=== PATIENT | male | born 1985 | race Caucasian/White ===

== ENCOUNTER 2022-08-28 17:11 | Emergency (ER) | payer OTHER ==
[~2022-08-28] VITALS: Ht 182.9 cm; Wt 90.0 kg
[2022-08-28 18:34] LABS: Urine Bacteria NONE SEEN /hpf (None Seen); Urine Blood Negative /uL (Negative); Urine Mucus FEW (None Seen); Urine Specific Gravity 1.021 (1.001-1.035); Urine WBC <1 /hpf (0 - 3)
[2022-08-28 18:36] LABS: Basophils # (auto) 0 10 ^3/uL (0-0.2); Basophils % (auto) 0.4 % (0.0-2.0); Eosinophils # (auto) 0.1 10 ^3/uL (0-0.8); Eosinophils % (auto) 1.1 % (0.0-7.0); Hematocrit 49.7 % (41.0-53.0); Hemoglobin 16.3 g/dL (13.5-17.5); Lymphocytes # (auto) 1.8 10 ^3/uL (0.4-5.4); Lymphocytes % (auto) 24.9 % (10.0-50.0); Mean Corpuscular Hemoglobin 30.3 pg (28.0-32.0); Mean Corpuscular Hgb Conc. 32.8 g/dL (32.0-36.0); Mean Corpuscular Volume 92.4 fL (80.0-100.0); Monocytes # (auto) 0.7 10 ^3/uL (0-1.3); Monocytes % (auto) 10.2 % (0.0-12.0); Neutrophils # (auto) 4.6 10 ^3/uL (1.6-8.6); Neutrophils % (auto) 63.4 % (37.0-80.0); Nucleated Red Blood Cells % 0.1 %; Red Blood Cells 5.38 10^6/uL (4.5-5.90); Red Cell Distribution Width 13.8 % (11.8-14.3); White Blood Cell 7.3 10^3/uL (4.4-10.8)
[2022-08-28 18:51] LABS: Albumin 4.1 g/dL (3.4-5.0); Potassium 3.9 mmol/L (3.5-5.1)
[2022-08-28 19:00] LABS: BUN/Creatinine Ratio 11.9; Bilirubin, Total 0.9 mg/dL (0.2-1.0); Total Protein 7.6 g/dL (6.4-8.2)
[2022-08-29] MEDS ORDERED: PRED20TA2 PO (00:45)
[2022-08-29 00:49] VITALS: BP 142/97
== END 2022-08-29 01:15 | disposition home or self-care (01) ==
LOC: ER 17:11
DX: M94.0 Chondrocostal junction syndrome [Tietze] (principal)
CPT/HCPCS: 36415; 74176; 80053; 81001; 85025

== ENCOUNTER 2023-10-07 11:49 | Emergency (ER) | payer OTHER ==
[~2023-10-07] VITALS: Ht 182.9 cm; Wt 90.0 kg
[~2023-10-07 11:49] MED LIST: PRED20TA2 PO
[2023-10-07 14:54] VITALS: BP 129/83; PULSE 70; RESP 20; TEMP 97.9; O2SAT 96
[2023-10-07] MEDS ORDERED: IBUP-1454 PO (17:06)
[2023-10-07] MEDS ORDERED: LIDO5CRE14 EX (17:06)
== END 2023-10-07 17:11 | disposition home or self-care (01) ==
LOC: ER 11:49
DX: M54.2 Cervicalgia (principal)
CPT/HCPCS: 72040